=== PATIENT | male | born 1985 | race Caucasian/White ===

== ENCOUNTER 2016-12-06 07:04 | Day surgery (SDC) | payer OTHER ==
--- NOTE | ~2016-12-06 | OP ---
Record Of Operation [facility] [address] [place]. [address] NAME: PIPPA NAGEL : 85 STATUS : [facility]#: [id number] AGE: 31 ADM/REG DATE : 12/06/16 MR#: [id number] REPORT SERV DATE: 12/06/16 DICTATED BY: MICHAEL MURPHY DATE: 12/06/16 REPORT STATUS : Draft TRANSCRIBED BY: MODL DATE: 12/06/16 DATE OF PROCEDURE: PREOPERATIVE DIAGNOSIS: Herniated nucleus pulposus, left C5-6. POSTOPERATIVE DIAGNOSIS: Herniated nucleus pulposus, left C5-6. PROCEDURES: 1. Microscopic navigation-assisted surgery. 2. Anterior cervical diskectomy, C5-6. 3. Implantation of Prestige disk arthroplasty, C5-6. SURGEON: Michael Murphy D.O. YARDER PUNCHER: Eric Harmon. ANESTHESIA: General. BLOOD LOSS: 10 mL. INDICATIONS FOR SURGERY: A 31-year-old male with rather severe neck pain, shoulder, and arm pain; mostly shoulder and arm pain in the form of the C6 radiculopathy. The patient has had plain x-rays, which were normal. MRI shows a large herniated disk on the left at C5-6 with nerve impingement. The patient has tried time, medication, therapy, nothing has helped. He is brought to surgery for the above procedure having failed conservative care. Prior to surgery, risks, benefits, alternatives, and expectations were explained. Consent form is signed. DESCRIPTION OF PROCEDURE: After identifying the patient in the preop holding area, antibiotic prophylaxis was given. Neurophysiology monitoring leads were inserted. The patient was brought to the operative suite. General anesthetic including endotracheal intubation was administered. A small bolster was placed behind his shoulders. His neck was minimally extended. The scalp was painted with Betadine solution. Castellon 3-point fixation was attached to the skull using 60 pounds of torque in standard position. The Castellon was attached to the Jorge Luis bed. The [employer] navigational registration frame was attached to the Wainwright. Isolation drapes were placed. The neck was scrubbed with solution. DuraPrep was painted. Sterile drapes were applied. Because of the complexity of the surgery, the need to identify correct level of surgery intraoperatively, as well as desire to carry out the safest most precise dissection, I felt intraoperative navigation was mandatory. Intraoperative CT scan with O-arm was obtained, CT information was used to register the navigational system. With navigational assistance, I identified the C5-6 level. On the left side, a 2.5 cm Record Of Operation [facility] [address] [place]. [address] NAME: PIPPA NAGEL : 85 STATUS : [facility]#: [id number] AGE: 31 ADM/REG DATE : 12/06/16 MR#: [id number] REPORT SERV DATE: 12/06/16 DICTATED BY: MICHAEL MURPHY DATE: 12/06/16 REPORT STATUS : Draft TRANSCRIBED BY: KITA DATE: 12/06/16 transverse Henry-Pearce skin incision was carried out. The platysma was incised in line with the skin incision. The superficial layer of the deep cervical fascia was released along the anterior border of the sternocleidomastoid. Blunt dissection was carried out at the retropharyngeal space where the longus coli muscles were subperiosteally elevated. Retractors were placed. We re-identified the correct level of surgery intraoperatively at C5-6. We placed the Kite pin in the midline and cephalad at C5 and caudal at C6. Microscope was sterilely draped and used throughout the remainder of the procedure. With navigational assistance, I then released the anterior longitudinal ligament. I carried out an anterior diskectomy. On the left side, a large fragment was removed from the left side in the epidural space as we removed the endplate cartilage. After the complete diskectomy, the endplate cartilage was removed. We debrided the uncinate processes and I also removed a small inferior ridge along the body of the C5 posteriorly. Wounds were irrigated. We then used a live C-arm and we initially determined the height and depth. We determined the appropriate size. Height was 6 mm and the depth was 18 mm. We then placed the drill guide. We checked the rotation with an AP view after proper rotation. We then drilled the four holes. The pins were placed. This was followed by the rail cut followed by placement of the permanent implant. This was all done under continuous live C-arm. Neurophysiology monitoring remained normal throughout. At the end of the case, the wound was irrigated. No bleeding was noted. The Kite pins were removed. AP and lateral x-rays showed excellent position of all implants. The wound was completely dry. No bleeding was noted. The patient did not need to drain. The platysma was closed with 3-0 Vicryl suture. The subcutaneous tissue was closed with 3-0 Vicryl suture and the subcuticular 4-0 PDS was used for skin closure. Sterile dressings were applied. The patient was awakened, extubated, and taken to the recovery room in satisfactory condition having tolerated the procedure well. Sponge, needle, and instrument counts were correct. No intraoperative complications noted. MIC/KITA Michael Murphy D.O. / [id number] CC: Michael Murphy D.O.
[~2016-12-06 07:04] MED LIST: ADDERALL20 MG PO; METHOC500B PO; NORCO1 TA2 PO; [UNRECOGNIZED DRUG - OTHER] PO
== END 2016-12-06 15:50 | disposition home or self-care (01) ==
LOC: SDC 07:04
PROVIDERS: Orthopaedic Surgery Orthopaedic Surgery of the Spine
PROC: 0QT70ZZ Resection of Left Upper Femur, Open Approach (ICD-10-PCS; principal; 2016-12-06 08:30)
PROC: 0KXR0ZZ Transfer Left Upper Leg Muscle, Open Approach (ICD-10-PCS; 2016-12-06 08:30)
DX: M50.222 Other cervical disc displacement at C5-C6 level (principal); F98.8 Other specified behavioral and emotional disorders with onset usually occurring in childhood and adolescence; Z87.891 Personal history of nicotine dependence; Z98.890 Other specified postprocedural states
CPT/HCPCS: 82962; 87641; 88304; 88311; A9270-GY; C1713; J0690; J2250; J2370; J2405; J2710; J3010